=== PATIENT | female | born 1995 | race Two or more races ===

== ENCOUNTER 2025-10-30 10:41 | Observation (INO) | payer MEDICAID ==
[2025-10-30 12:24] LABS: Hematocrit 38.4 % (36.0-46.0); Hemoglobin 13.4 g/dL (12.2-16.2); Mean Corpuscular Hemoglobin 32.4 pg (28.0-32.0); Mean Corpuscular Volume 92.7 fL (80.0-100.0); Nucleated Red Blood Cells % 0.0 %
[2025-10-30 12:42] LABS: Alanine Aminotransferase 18 U/L (7-40); Albumin 3.8 g/dL (3.2-4.8); Alkaline Phosphatase 94 U/L (46-116); Anion Gap 8 (5-15); BUN/Creatinine Ratio 12.2 (10.0-20.0); Bilirubin, Total 0.5 mg/dL (0.2-1.0); Calcium 8.8 mg/dL (8.7-10.4); Carbon Dioxide 25 mmol/L (20-31); Chloride 105 mmol/L (98-107); Potassium 4.0 mmol/L (3.5-5.1); Sodium 138 mmol/L (136-145); Total Protein 6.7 g/dL (5.7-8.2); Uric Acid 3.4 mg/dL (3.1-7.8)
[2025-10-30 12:43] LABS: INR 0.9 (0.9-1.15); Partial Thromboplastin Time 28.9 SEC (24.5-34.5); Prothrombin Time 9.6 sec (9.3-11.8)
[2025-10-30 12:46] LABS: Blood Urea Nitrogen 6 mg/dL (9-23); Glucose 72 mg/dL (74-106)
--- NOTE | 2025-10-30 13:15 | DVH ---
BIOPHYSICAL PROFILE HISTORY: R/O PreE TECHNIQUE: Multiple transabdominal real-time grayscale sonographic images through the gravid uterus of the fetus with duplex Doppler color flow and M-mode spectral analysis FINDINGS: Biophysical score of 8/8. heart rate of 146 beats per minute. Cephalic position. DADA of 19 cm. Anterior placental location, grade 2. No placenta previa or abruptio. IMPRESSION: 1. Biophysical profile score: 8/8
[2025-10-30 13:43] LABS: Urine Protein, UAD 1+ (Negative)
[2025-10-30 13:46] LABS: Protein, Urine 45.0 mg/dL (1-14)
[2025-10-30] MEDS ORDERED: PREN-96 PO (14:04)
--- NOTE | 2025-10-30 14:10 | DVHDS2 ---
Physician Discharge Progress N Final Diagnosis: iup at 35wks with pih Operations or Procedures: Operations or Procedures nst reactive reviwed,sono Condition on Discharge: Good Disposition: Home Discharge Instructions: Diet: Regular Activity: No Restrictions, As Tolerated Medications: na Follow Up Care: Specialist: 2d Discharge Statement: "Patient was advised to return to the ER or call 911 if any headaches, dizziness, shortness of breath, chest pain, abdominal pain, bleeding, fevers, or worsening of medical condition. Patient was counseled about treatment plan, medications, possible side effects, patientverbalized understanding. All questions were answered to the best of my ability. This discharge took greater then 30 minutes in planning, reviewing documentation, counseling the patient, and discussing with other team members." Visit Coding OBGYN Date of Service: Oct 30, 2025 Billing Provider: KARSTEN TERRELL DO STRETCHER HELPER Common Visit Codes: [id number] OBS CARE (HIGH) STRETCHER HELPER Procedure Codes: 65735-09- NON-STRESS TEST KARSTEN TERRELL DO Oct 30, 2025 14:10
== END 2025-10-30 14:17 | disposition home or self-care (01) ==
LOC: LDRP 10:41
PROVIDERS: ADMIT Obstetrics & Gynecology; ATTEND Obstetrics & Gynecology
DX: O13.3 Gestational [pregnancy-induced] hypertension without significant proteinuria, third trimester (principal); Z3A.35 35 weeks gestation of pregnancy; Z79.899 Other long term (current) drug therapy; Z98.890 Other specified postprocedural states
CPT/HCPCS: 36415; 59025; 76819; 80053; 81001; 81002; 82570; 84156; 84550; 85025; 85610; 85730; 86780; 94760; A4649; G0378

== ENCOUNTER 2025-11-01 12:50 | Observation (INO) | payer MEDICAID ==
[~2025-11-01 12:50] MED LIST: PREN-96 PO
--- NOTE | 2025-11-01 14:34 | DVH ---
BIOPHYSICAL PROFILE HISTORY: PIH 24 HOUR URINE RETURN TECHNIQUE: Multiple transabdominal real-time grayscale sonographic images through the gravid uterus of the fetus with duplex Doppler color flow and M-mode spectral analysis FINDINGS: BIOPHYSICAL PROFILE: breathing score: 2/2 movement score: 2/2 tone score: 2/2 Quantitative DADA score: 2/2 (DADA: 18.6 Cm.) Total score: 8/8 The cervix closed Single live fetus in cephalic presentation. heart rate 132 beats per minute. Grade 2 anterior placenta without previa or abruption IMPRESSION: 1. Biophysical profile score: 8/8
[2025-11-01 14:51] LABS: Protein, Urine < 6.0 mg/dL (1-14)
[2025-11-01 15:14] LABS: Protein, Urine 9.6 mg/dL (1-14)
[2025-11-01 15:19] LABS: 24 Hr. Total Protein, Urine 288.0 mg/24 Hr (<149.1); Urine Total Volume, 24 Hours 3000.0 mL
--- NOTE | 2025-11-01 16:19 | DVHDS2 ---
Physician Discharge Progress N Final Diagnosis: pih 35wks Operations or Procedures: Operations or Procedures nst reactive reviwed,sono,labs Condition on Discharge: Good Disposition: Home Discharge Instructions: Diet: Regular Activity: Light activity Medications: na Follow Up Care: Specialist: 1w Discharge Statement: "Patient was advised to return to the ER or call 911 if any headaches, dizziness, shortness of breath, chest pain, abdominal pain, bleeding, fevers, or worsening of medical condition. Patient was counseled about treatment plan, medications, possible side effects, patientverbalized understanding. All questions were answered to the best of my ability. This discharge took greater then 30 minutes in planning, reviewing documentation, counseling the patient, and discussing with other team members." Visit Coding OBGYN Date of Service: Nov 01, 2025 Billing Provider: KARSTEN TERRELL DO SPRING TESTER Common Visit Codes: [id number] OBS CARE (HIGH) SPRING TESTER Procedure Codes: 05150-94- NON-STRESS TEST KARSTEN TERRELL DO Nov 01, 2025 16:18
== END 2025-11-01 15:16 | disposition home or self-care (01) ==
LOC: LDRP 12:50
PROVIDERS: ADMIT Obstetrics & Gynecology; ATTEND Obstetrics & Gynecology
DX: O13.3 Gestational [pregnancy-induced] hypertension without significant proteinuria, third trimester (principal); Z3A.35 35 weeks gestation of pregnancy; Z98.890 Other specified postprocedural states
CPT/HCPCS: 59025; 76819; 81002; 82570; 84156; 94760; A4649; G0378